=== PATIENT | male | born 1935 | race Two or more races ===

== ENCOUNTER 2022-12-14 21:08 | Emergency (ER) | payer OTHER, MEDICAID ==
[~2022-12-14] VITALS: Ht 170.2 cm; Wt 60.0 kg
[2022-12-15 02:04] LABS: Basophils # (auto) 0.1 10 ^3/uL (0-0.2); Basophils % (auto) 0.5 % (0.0-2.0); Eosinophils # (auto) 0.1 10 ^3/uL (0-0.8); Hematocrit 40.1 % (41.0-53.0); Hemoglobin 13.6 g/dL (13.5-17.5); Lymphocytes # (auto) 0.8 10 ^3/uL (0.4-5.4); Lymphocytes % (auto) 5.5 % (10.0-50.0); Mean Corpuscular Hemoglobin 32.6 pg (28.0-32.0); Mean Corpuscular Hgb Conc. 33.8 g/dL (32.0-36.0); Mean Corpuscular Volume 96.4 fL (80.0-100.0); Monocytes # (auto) 0.6 10 ^3/uL (0-1.3); Monocytes % (auto) 4.1 % (0.0-12.0); Neutrophils # (auto) 12.9 10 ^3/uL (1.6-8.6); Neutrophils % (auto) 88.9 % (37.0-80.0); Red Blood Cells 4.16 10^6/uL (4.5-5.90); Red Cell Distribution Width 13.6 % (11.8-14.3); White Blood Cell 14.5 10^3/uL (4.4-10.8)
[2022-12-15 02:21] LABS: Albumin 2.6 g/dL (3.4-5.0); BUN/Creatinine Ratio 19.4; Magnesium 2.2 mg/dL (1.6-2.6); Potassium 4.2 mmol/L (3.5-5.1)
[2022-12-15 02:24] LABS: Total Protein 6.7 g/dL (6.4-8.2)
[2022-12-15] MEDS ORDERED: PIPERACILLIN-TAZOB 3.375GM 100 ML IV ONE (03:30)
[2022-12-15 07:50] LABS: Urine Bacteria NONE SEEN /hpf (None Seen); Urine Blood 1+ /uL (Negative); Urine Specific Gravity 1.024 (1.001-1.035); Urine WBC 4 /hpf (0 - 3)
[2022-12-15] MEDS ORDERED: ALBU0.084 NEB (12:31)
[2022-12-15] MEDS ORDERED: LEVO-28 PO (12:31)
[2022-12-15] MEDS ORDERED: CARB1TAB73 ×2 (12:31→12:32)
[2022-12-15] MEDS ORDERED: DONE5TAB80 PO (12:31)
[2022-12-15] MEDS ORDERED: CLOP75TA70 PO (12:32)
[2022-12-15] MEDS ORDERED: MEMA1TAB3 PO (12:32)
[2022-12-15] MEDS ORDERED: ATOR40TA52 PO (12:32)
[2022-12-15] MEDS ORDERED: METR500T PO (12:37)
[2022-12-15 14:00] VITALS: BP 130/45
== END 2022-12-15 14:26 | disposition home or self-care (01) ==
LOC: ER 21:08 → EDBD 21:08 → ER 12-15 14:26
DX: J18.9 Pneumonia, unspecified organism (principal); N39.0 Urinary tract infection, site not specified; R62.7 Adult failure to thrive; R07.89 Other chest pain; Z68.20 Body mass index [BMI] 20.0-20.9, adult; Z86.73 Personal history of transient ischemic attack (TIA), and cerebral infarction without residual deficits; Z20.822 Contact with and (suspected) exposure to COVID-19
CPT/HCPCS: 36415; 71045; 80053; 81001; 83605; 83735; 83880; 84484; 85025; 87040; 87426; 93005; 96365; 96366; 99285; J2543